=== PATIENT | female | born 1990 | race Caucasian/White ===

== ENCOUNTER 2019-07-04 22:06 | Emergency (ER) | payer SELFPAY ==
[~2019-07-04] VITALS: Ht 160 cm; Wt 62.0 kg
[2019-07-04] MEDS ORDERED: IV NORMAL SALINE 1000ML BAG 1,000 ML IV SCH (22:30)
[2019-07-04 22:33] LABS: BASO # 0.1 x10^3/uL (0.0-0.2); BASO % 1 % (0-3); EOS # 0.2 x10^3/uL (0.0-0.7); EOS % 2 % (0-3); HEMATOCRIT 43.5 % (36.0-47.0); HEMOGLOBIN 14.6 g/dL (12.0-15.5); LYMPH # 3.8 x10^3/uL (1.0-4.8); LYMPH % 45 % (24-48); MEAN CORPUSCULAR HEMOGLOBIN 29 pg (25-35); MEAN CORPUSCULAR HGB CONC 34 g/dL (31-37); MEAN CORPUSCULAR VOLUME 87 fL (79-100); MONO # 0.6 x10^3/uL (0.0-1.1); MONO % 7 % (0-9); NEUT # 3.8 x10^3/uL (1.8-7.7); NEUT % 46 % (31-73); PLATELET COUNT 291 x10^3/uL (140-400); RED BLOOD COUNT 4.99 x10^6/uL (3.50-5.40); RED CELL DISTRIBUTION WIDTH 14.1 % (11.5-14.5); WHITE BLOOD COUNT 8.4 x10^3/uL (4.0-11.0)
[2019-07-04 22:45] LABS: CREATININE 0.8 mg/dL (0.6-1.0); GFR 84.2; POTASSIUM 3.6 mmol/L (3.5-5.1)
[2019-07-04] MEDS ORDERED: ONDANSETRON PF 4 MG/2 ML VIAL. IVP ONE (22:45)
[2019-07-04 22:51] LABS: ALBUMIN 4.6 g/dL (3.4-5.0); DIRECT BILIRUBIN 0.1 mg/dL (0.0-0.2); MAGNESIUM 2.4 mg/dL (1.8-2.4); TOTAL BILIRUBIN 0.2 mg/dL (0.2-1.0); TOTAL PROTEIN 7.7 g/dL (6.4-8.2)
[2019-07-04 23:41] VITALS: BP 128/63
[2019-07-04] MEDS ORDERED: CEPH500C PO (23:47)
[2019-07-04] MEDS ORDERED: TRAM50TA PO (23:47)
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
== END 2019-07-05 00:10 | disposition home or self-care (01) ==
LOC: ER 22:06
DX: S21.011A Laceration without foreign body of right breast, initial encounter (principal); W18.02XA Striking against glass with subsequent fall, initial encounter; Y93.89 Activity, other specified; Y92.89 Other specified places as the place of occurrence of the external cause; Y99.8 Other external cause status
CPT/HCPCS: 12034; 36415; 80048; 80076; 83735; 85025; 96374; 99284; G0480; J2405; J7030

== ENCOUNTER 2019-07-14 11:08 | Emergency (ER) | payer SELFPAY ==
[~2019-07-14] VITALS: Ht 157.5 cm; Wt 56.8 kg
[~2019-07-14 11:08] MED LIST: CEPH500C PO; TRAM50TA PO
[2019-07-14 11:40] VITALS: BP 122/60
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
== END 2019-07-14 12:36 | disposition home or self-care (01) ==
LOC: ER 11:08
DX: S21.011D Laceration without foreign body of right breast, subsequent encounter (principal); F17.200 Nicotine dependence, unspecified, uncomplicated; Y08.89XD Assault by other specified means, subsequent encounter
CPT/HCPCS: 99282